=== PATIENT | female | born 1970 | race Caucasian/White ===

== ENCOUNTER 2020-03-04 10:39 | Outpatient (REF) | payer OTHER, SELFPAY ==
[2020-03-04 15:03] LABS: Alanine Aminotransferase 47 U/L (0-31); Albumin Level 4.6 g/dL (3.5-5.0); Alkaline Phosphatase 121 U/L (39-117); Aspartate Amino Transferase 37 U/L (5-31); Bilirubin Direct 0.2 mg/dL (0.0-0.5); Bilirubin Total 0.5 mg/dL (0.0-1.0); Total Protein 7.5 g/dL (6.5-8.0)
[2020-03-04 15:26] LABS: Vitamin D 25-OH Total 37.9 ng/mL (>30)
== END 2020-03-04 10:40 | disposition home or self-care (01) ==
LOC: HO.HMGCLDS 10:39
PROVIDERS: PCP Internal Medicine; Visit Provider Internal Medicine
DX: R79.89 Other specified abnormal findings of blood chemistry (principal)
CPT/HCPCS: 80076; 82306

== ENCOUNTER 2020-09-07 12:42 | Outpatient (REF) | payer OTHER, SELFPAY ==
--- NOTE | ~2020-09-07 | XR_ITS ---
EXAMINATION: XR HAND, RIGHT XR HAND, LEFT CLINICAL INFORMATION: Abnormal lab findings. COMPARISON: None. TECHNIQUE: AP, oblique, and lateral views of the right and left hand. FINDINGS: Right Hand: Mild joint space narrowing with tiny marginal osteophytes at the 2nd and 3rd metacarpophalangeal joints. No osseous erosion. No fracture or dislocation. No abnormal soft tissue calcification. Normal carpal alignment. Left Hand: Mild joint space narrowing tiny marginal osteophytes at the 3rd metacarpophalangeal joint. No osseous erosion. No fracture or dislocation. No abnormal soft tissue calcification. Normal carpal alignment. 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 LEFT HAND: Minimal degenerative arthritis at the 3rd metacarpophalangeal joint.
--- NOTE | ~2020-09-07 | XR_ITS ---
EXAMINATION: XR HAND, RIGHT XR HAND, LEFT CLINICAL INFORMATION: Abnormal lab findings. COMPARISON: None. TECHNIQUE: AP, oblique, and lateral views of the right and left hand. FINDINGS: Right Hand: Mild joint space narrowing with tiny marginal osteophytes at the 2nd and 3rd metacarpophalangeal joints. No osseous erosion. No fracture or dislocation. No abnormal soft tissue calcification. Normal carpal alignment. Left Hand: Mild joint space narrowing tiny marginal osteophytes at the 3rd metacarpophalangeal joint. No osseous erosion. No fracture or dislocation. No abnormal soft tissue calcification. Normal carpal alignment. 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 LEFT HAND: Minimal degenerative arthritis at the 3rd metacarpophalangeal joint.
== END 2020-09-07 12:43 | disposition home or self-care (01) ==
LOC: HO.HMGCX 12:42
PROVIDERS: PCP Internal Medicine; Visit Provider Internal Medicine
DX: R79.89 Other specified abnormal findings of blood chemistry (principal); E78.5 Hyperlipidemia, unspecified; K76.0 Fatty (change of) liver, not elsewhere classified; M25.50 Pain in unspecified joint; R73.9 Hyperglycemia, unspecified; E55.9 Vitamin D deficiency, unspecified; R21 Rash and other nonspecific skin eruption
CPT/HCPCS: 73130

== ENCOUNTER 2022-06-20 09:01 | Outpatient (REF) | payer OTHER, SELFPAY ==
[2022-06-20 11:52] LABS: MANUAL DIFF FLAG NO
[2022-06-20 12:15] LABS: Basophils Percent Auto 0.8 % (0-2); Eosinophils Absolute Auto 0.2 X10*3/uL (0.0-0.4); Eosinophils Percent Auto 3.9 % (0-4); Hematocrit 43.3 % (37.0-47.0); Hemoglobin 14.4 g/dl (12.0-16.0); Imm Gran Abs Auto 0.01 X10*3/uL (0.00-0.03); Imm Gran Pct Auto 0.2 % (0.0-0.4); Lymphocytes Absolute Auto 1.8 X10*3/uL (1.2-4.9); Lymphocytes Percent Auto 36.3 % (20-40); Mean Corpuscular HGB Conc 33.3 g/dl (31.0-35.0); Mean Corpuscular Hemoglobin 30.5 pg (27.0-33.0); Mean Corpuscular Volume 91.7 fL (80.0-98.0); Mean Platelet Volume 10.9 fL (9.4-12.3); Monocytes Absolute Auto 0.5 X10*3/uL (0.1-1.2); Monocytes Percent Auto 9.2 % (2-11); Neutrophils Absolute Auto 2.4 x10*3/uL (2.0-8.3); Neutrophils Percent Auto 49.6 % (45-73); Platelet Count 304 X10*3/uL (160-400); Red Blood Count 4.72 X10*6/uL (4.20-5.50); Red Cell Distribution Width 12.7 % (11.0-16.0); White Blood Count 4.9 X10*3/uL (4.8-10.8)
[2022-06-20 12:49] LABS: Alanine Aminotransferase 42 U/L (0-31); Albumin Level 4.5 g/dL (3.5-5.0); Alkaline Phosphatase 112 U/L (39-117); Anion Gap 13 (12-20); Aspartate Amino Transferase 35 U/L (5-31); Bilirubin Total 0.6 mg/dL (0.0-1.0); Blood Urea Nitrogen 17 mg/dL (9-16); Calcium 9.8 mg/dL (8.4-10.2); Carbon Dioxide 27 mmol/L (22-29); Chloride 105 mmol/L (96-108); Cholesterol 165 mg/dL; Estimated Glomerular Filt Rate > 60; Glucose Fasting 113 mg/dL (60-99); HDL Cholesterol 42 mg/dL; LDL Cholesterol Calculated 93 mg/dl; Potassium 4.6 mmol/L (3.3-5.1); Sodium 140 mmol/L (135-145); Total Protein 7.2 g/dL (6.5-8.0); Triglycerides 153 mg/dL
[2022-06-20 13:02] LABS: TSH reflex Free T4 0.79 uIU/mL (0.32-4.0); Vitamin B12 572 pg/mL (200-900); Vitamin D 25-OH Total 43.9 ng/mL (>30)
== END 2022-06-20 09:02 | disposition home or self-care (01) ==
LOC: HO.HMGCLDS 09:01
PROVIDERS: Visit Provider Internal Medicine
DX: E53.8 Deficiency of other specified B group vitamins (principal); E78.5 Hyperlipidemia, unspecified; R73.9 Hyperglycemia, unspecified; E55.9 Vitamin D deficiency, unspecified
CPT/HCPCS: 36415; 80053; 80061; 82306; 82607; 82746; 84443; 85025

== ENCOUNTER 2023-10-02 08:59 | Outpatient (REF) | payer OTHER, SELFPAY ==
[2023-10-02 10:38] LABS: Estimated Average Glucose 120 mg/dL; Hemoglobin A1c % 5.8 % (<6.0)
[2023-10-02 11:06] LABS: Alanine Aminotransferase 32 U/L (0-31); Albumin Level 4.5 g/dL (3.5-5.0); Alkaline Phosphatase 99 U/L (39-117); Anion Gap 15 (12-20); Aspartate Amino Transferase 30 U/L (5-31); Bilirubin Total 0.4 mg/dL (0.0-1.0); Blood Urea Nitrogen 17 mg/dL (9-16); Calcium 10.1 mg/dL (8.4-10.2); Carbon Dioxide 25 mmol/L (22-29); Chloride 106 mmol/L (96-108); Estimated Glomerular Filt Rate > 60; Glucose Fasting 110 mg/dL (60-99); Potassium 4.8 mmol/L (3.3-5.1); Sodium 141 mmol/L (135-145); Total Protein 7.6 g/dL (6.5-8.0)
== END 2023-10-02 09:00 | disposition home or self-care (01) ==
LOC: HO.HMGCLDS 08:59
PROVIDERS: PCP Internal Medicine; Visit Provider Internal Medicine
DX: R73.9 Hyperglycemia, unspecified (principal); K76.0 Fatty (change of) liver, not elsewhere classified
CPT/HCPCS: 36415; 80053; 83036

== ENCOUNTER 2024-01-01 07:58 | Outpatient (AMB) | payer OTHER, SELFPAY ==
[2024-01-01 07:59] VITALS: BP 134/84; PULSE 95; O2SAT 98; BMI 28.4
--- NOTE | 2024-01-01 07:59 | A.OFFPC_ITS ---
Vital Signs 01/01/24 07:59 Height 5 ft 6 in Weight 176 lb BMI 28.4 BP 134/84 Blood Pressure Location Rt brachial Position Sitting Pulse 95 Pulse Source Pulse Oximeter Pulse Oximetry (%) 98 Oxygen Delivery Method Room Air Intake Visit Reasons: Annual PE Intake Note: Pt is here today for PE. Allergies No Known Allergies Allergy (Verified 01/01/24 08:02) Medication List - Last Reconciled 01/01/24 by Kylee Marin MD albuterol sulfate 90 mcg/actuation 2 puffs PO Q4H PRN betamethasone dipropionate 0.05% 1 appl topical BEDTIME PRN calcium carbonate (Calcium 600) 600 mg PO DAILY cholecalciferol (vitamin D3) 50 mcg PO DAILY clobetasol 0.05% 1 appl topical BID loratadine (Claritin) 10 mg PO DAILY magnesium oxide 500 mg PO DAILY valacyclovir (Valtrex) 1,000 mg PO Q8H Tobacco use date assessed: 01/01/24 Dental Screening Dental Screen Date: 01/01/24 Did you have a dental visit in the last 12 months?: Yes Did you have a dental problem in the last 6 months where you did not have access to dental care?: No Was dental information given to patient?: Patient has dentist HPI Annual PE HPI Details Pt presents for PE. Pt c/o recurrent UTIs every month. She denies urinary incontinence, hematuria, fever chills nausea vomiting, change in bowel habits. [facility] Medical History Vitamin B12 deficiency Annual physical exam Hyperglycemia Vitamin D deficiency Skin rash Arthralgia Nonalcoholic hepatosteatosis Elevated LFTs Bilateral carpal tunnel syndrome Hyperlipidemia Mild asthma Allergic rhinitis Surgical History Status post bilateral foot surgery No pertinent past surgical history Family History Father No problems noted. Mother HTN (hypertension) Social History Housing: House Alcohol intake: current Alcohol intake frequency: does not drink Patient Tobacco Use Status: Former Tobacco user e-Cigarette/Vaping Use: Never Used Second Hand Smoke Exposure: No service: No Current occupational status: employed Cognitive needs: No Hearing needs: No Vision needs: Yes Questionnaire PHQ-9 Over the last 2 weeks, how often have you been bothered by any of the following problems? 1. Little interest or pleasure in doing things: not at all 2. Feeling down, depressed, or hopeless: not at all 3. Trouble falling or staying asleep, or sleeping too much: not at all 4. Feeling tired or having little energy: not at all 5. Poor appetite or overeating: not at all 6. Feeling bad about yourself - or that you are a failure or have let yourself or your family down: not at all 7. Trouble concentrating on things, such as reading the newspaper or watching television: not at all 8. Moving or speaking so slowly that other people could have noticed. Or the opposite - being so fidgety or restless that you have been moving around a lot more than usual: not at all 9. Thoughts that you would be better off or of hurting yourself in some way: not at all Total score: 0 Depression Screening Interpretation: Negative Depression Screening Done: Yes 79357 - PHQ-9 Billing: Yes Source: Developed by Drs. Brent Weiss, Meagan Cuevas, Berto Sanz and colleagues, with an educational ramila from [employer]. Thrive Questionnaire Date Thrive assessed: 01/01/24 I am a: Patient What is your living situation today?: I have a steady place to live Within the past 12 months, did the food you bought not last and you didn't have the money to get more?: Never true Within the past 12 months, did you worry whether your food would run out before you got money to buy more?: Never true Do you have trouble paying for medicines?: I choose not to answer this question Do you have trouble getting transportation to medical appointments?: No Do you have trouble paying your heating and electricity bill?: No Do you have trouble taking care of your child, family member or friend?: No Do you have trouble with day-to-day activities such as bathing, preparing meals, shopping, managing finances, etc.?: No Are you currently unemployed and looking for a job?: No Are you interested in more education?: No Please select the resources that you would like help with: Housing/Longterm Currently or been in a relationship where the following occur: No concerns reported THRIVE Score: 0 AUDIT C Alcohol Use Questionnaire (AUDIT-C) 1. How often do you have a drink containing alcohol?: Never 3. How often do you have six or more drinks on one occasion?: Never Total Score: 0 RUI-7 AMB Questionnaire RUI-7 Date RUI - 7 assessed: 01/01/24 Feeling nervous, anxious, or on edge: 1 = Several days Not being able to stop or control worryin = Not at all Worrying too much about different things: 1 = Several days Trouble relaxin = Several days Being so restless that it is hard to sit still: 0 = Not at all Becoming easily annoyed or irritable: 0 = Not at all Feeling afraid as if something awful might happen: 0 = Not at all Total RUI-7 score (0-4 normal; 5-9 mild; 10-14 moderate; 15-21 severe): 3 Source: Developed by Drs. Brent Weiss, Meagan Cuevas, Berto Sanz and colleagues, with an educational ramila from [employer]. RUI-7 Assessment Billing RUI-7 Assessment Tool: RUI-7 Assessment 90729 Review of Systems Const All systems reviewed & are unremarkable except as noted in HPI and below Eyes Reports no additional complaints ENT Reports no additional complaints Card Reports no additional complaints Resp Reports no additional complaints GI Reports no additional complaints Reports no additional complaints Physical exam (Primary Care) Vital Signs: Last Vital Signs Pulse 95 01/01/24 07:59 BP 134/84 01/01/24 07:59 Pulse Ox 98 01/01/24 07:59 Oxygen Delivery Method Room Air 01/01/24 07:59 BMI result Body Mass Index 28.4 Tobacco/Smoking Status: Tobacco use Status Tobacco use date assessed 01/01/24 01/01/24 08:11 Patient Tobacco Use Status Former Tobacco user 01/01/24 08:11 e-Cigarette/Vaping Use Never Used 01/01/24 08:11 PHQ-9: PHQ-9 Score PHQ-9: Total score 0 01/01/24 08:27 Depression Screening Interpretation: Negative Thrive Assessment: Date of Thrive Assessment Date Thrive assessed 01/01/24 01/01/24 08:27 Currently or been in a relationship where the following occur: No concerns reported Const General: no acute distress HENMT Head: Yes normal to inspection Ears: hearing grossly normal bilaterally Mouth: Normal oral and palatal mucosa present Throat: Yes posterior oropharynx normal Eyes General: appearance normal, both eyes and all related structures Neck Neck: Yes no lymphadenopathy and Yes supple Resp Effort & Inspection: normal respiratory effort Auscultation: clear to auscultation bilaterally Cardio Rhythm: regular rhythm Heart sounds: S1 normal heart sound present and S2 normal heart sound present GI Inspection: Yes normal to inspection Palpation (GI): Soft to palpation Percussion: Yes normal to percussion Auscultation: normal bowel sounds External Female Exam: normal external appearance Speculum Exam - Vagina: normal appearance of the vagina Speculum Exam - Cervix: normal appearance of the cervix Bimanual Exam- Adnexa, other: normal adnexae Assessment and Plan Assessment & Plan (1) Hyperlipidemia: Code(s): E78.5 - Hyperlipidemia, unspecified Plan: cont low cholesterol diet (2) Hyperglycemia: Code(s): R73.9 - Hyperglycemia, unspecified Plan: ADA diet, regular exercise, check A1C (3) Annual physical exam: Code(s): Z00.00 - Encounter for general adult medical examination without abnormal findings Plan: Pt will schedule mammogram, return for fasting labs (4) UTI (urinary tract infection): Code(s): N39.0 - Urinary tract infection, site not specified Plan: recheck UA and urine culture 1 week after Tx, UTI prevention discussed Orders: Orders Complete Blood Count Auto Diff Today E78.5 - Hyperlipidemia, unspecified, Z00.00 - Encounter for general adult medical examination without abnormal findings PAP Smear Today Z00.00 - Encounter for general adult medical examination without abnormal findings UA w Microscopic Today E78.5 - Hyperlipidemia, unspecified, Z00.00 - Encounter for general adult medical examination without abnormal findings Urine Culture Today E78.5 - Hyperlipidemia, unspecified, Z00.00 - Encounter for general adult medical examination without abnormal findings Comprehensive [place]. Panel Fast Today E78.5 - Hyperlipidemia, unspecified, Z00.00 - Encounter for general adult medical examination without abnormal findings Lipid Panel Today E78.5 - Hyperlipidemia, unspecified, Z00.00 - Encounter for general adult medical examination without abnormal findings Vitamin B12 and Folate Today E78.5 - Hyperlipidemia, unspecified, Z00.00 - Encounter for general adult medical examination without abnormal findings Vitamin D 25-OH Total Today E78.5 - Hyperlipidemia, unspecified, Z00.00 - Encounter for general adult medical examination without abnormal findings Hemoglobin A1c Today R73.9 - Hyperglycemia, unspecified US renal BI Today N39.0 - Urinary tract infection, site not specified Coding Level of Care Code Est Pt Prev Care 40-64y(97320) Diagnoses Hyperlipidemia E78.5 Hyperglycemia R73.9 Annual physical exam Z00.00 UTI (urinary tract infection) N39.0 Additional Codes RUI-7 Assessment Billing - RUI-7 Assessment Tool: RUI-7 Assessment 44147 ([id number])
== END 2024-01-01 09:14 | disposition home or self-care (01) ==
PROVIDERS: PCP Internal Medicine; Visit Provider Internal Medicine
DX: Z00.00 Encounter for general adult medical examination without abnormal findings (principal); E78.5 Hyperlipidemia, unspecified; R73.9 Hyperglycemia, unspecified; N39.0 Urinary tract infection, site not specified
CPT/HCPCS: 99396

== ENCOUNTER 2024-01-01 13:08 | Outpatient (REF) | payer OTHER, SELFPAY | END 2024-01-01 13:09 | disposition home or self-care (01) | LOC: HO.HMGCLNP 13:08 | PROVIDERS: Visit Provider Internal Medicine | DX: Z00.00 Encounter for general adult medical examination without abnormal findings (principal) | CPT/HCPCS: 88175 ==

== ENCOUNTER 2024-01-08 09:48 | Outpatient (REF) | payer OTHER, SELFPAY ==
--- NOTE | ~2024-01-08 | US_ITS ---
EXAMINATION: US RETROPERITONEAL COMPLETE (RENAL) CLINICAL INFORMATION: Urinary tract infection.. COMPARISON: Abdominal ultrasound dated 11/07/2019. TECHNIQUE: Real-time imaging of the kidneys and bladder. FINDINGS: RIGHT KIDNEY: 9.7 x 3.8 x 5.7 cm (SAG x AP x TRV). The kidney is normal in size, contour, and echogenicity. Renal cortical thickness is normal. No calculi or focal parenchymal lesions. No hydronephrosis. LEFT KIDNEY: 10.1 x 3.9 x 5.8 cm (SAG x AP x TRV). The kidney is normal in size, contour, and echogenicity. Renal cortical thickness is normal. No calculi or focal parenchymal lesions. No hydronephrosis. US/US renal BI IMPRESSION: Unremarkable ultrasound appearance of the kidneys.. Electronically signed by: Conrado Sosa MD 01/24/2024 10:56 AM EDT
[2024-01-08 13:11] LABS: MANUAL DIFF FLAG NO
[2024-01-08 13:22] LABS: Basophils Absolute Auto 0.1 X10*3/uL (0.0-0.2); Eosinophils Absolute Auto 0.2 X10*3/uL (0.0-0.4); Hematocrit 42.7 % (37.0-47.0); Hemoglobin 14.2 g/dl (12.0-16.0); Imm Gran Abs Auto 0.01 X10*3/uL (0.00-0.03); Imm Gran Pct Auto 0.2 % (0.0-0.4); Lymphocytes Absolute Auto 1.7 X10*3/uL (1.2-4.9); Lymphocytes Percent Auto 34.5 % (20-40); Mean Corpuscular HGB Conc 33.3 g/dl (31.0-35.0); Mean Corpuscular Hemoglobin 30.7 pg (27.0-33.0); Mean Corpuscular Volume 92.2 fL (80.0-98.0); Mean Platelet Volume 10.5 fL (9.4-12.3); Monocytes Absolute Auto 0.4 X10*3/uL (0.1-1.2); Monocytes Percent Auto 7.1 % (2-11); Neutrophils Absolute Auto 2.7 x10*3/uL (2.0-8.3); Neutrophils Percent Auto 54.2 % (45-73); Platelet Count 268 X10*3/uL (160-400); Red Blood Count 4.63 X10*6/uL (4.20-5.50); Red Cell Distribution Width 13.2 % (11.0-16.0); White Blood Count 4.9 X10*3/uL (4.8-10.8)
[2024-01-08 13:29] LABS: Appearance Urine Cloudy; Color Urine Yellow; Glucose Urine UA Negative (Negative); Leukocyte Esterase Urine Negative (Negative); Nitrite Urine Negative (Negative); PH 5.5 (5.0-9.0); Urine Blood Negative (Negative); Urine Ketones Negative (Negative); Urine Protein Negative (Neg-Trace)
[2024-01-08 13:33] LABS: Bacteria Urine None Seen (None Seen); Hyaline Casts Urine 0-2 /LPF (0-2); RBC Urine 0-2 /HPF (0-2); Squamous Epithelial Cell Urine 0-2 /HPF (0-2); WBC Urine 0-5 /HPF (0-5)
[2024-01-08 13:42] LABS: Estimated Average Glucose 111 mg/dL; Hemoglobin A1c % 5.5 % (<6.0)
[2024-01-08 13:58] LABS: Alanine Aminotransferase 35 U/L (0-31); Albumin Level 4.3 g/dL (3.5-5.0); Alkaline Phosphatase 83 U/L (39-117); Anion Gap 12 (12-20); Aspartate Amino Transferase 30 U/L (5-31); Bilirubin Total 0.4 mg/dL (0.0-1.0); Blood Urea Nitrogen 19 mg/dL (9-16); Calcium 9.9 mg/dL (8.4-10.2); Carbon Dioxide 27 mmol/L (22-29); Chloride 106 mmol/L (96-108); Cholesterol 184 mg/dL (<200); Estimated Glomerular Filt Rate > 60; Glucose Fasting 104 mg/dL (60-99); HDL Cholesterol 44 mg/dL (>40); LDL Cholesterol Calculated 94 mg/dL (<100); Potassium 4.3 mmol/L (3.3-5.1); Sodium 141 mmol/L (135-145); Total Protein 7.2 g/dL (6.5-8.0); Triglycerides 232 mg/dL (<150)
[2024-01-08 14:03] LABS: Vitamin D 25-OH Total 61.7 ng/mL (>30)
[2024-01-08 14:11] LABS: Folate 10.9 ng/mL (> or = 4.0); Vitamin B12 388 pg/mL (200-900)
== END 2024-01-08 09:49 | disposition home or self-care (01) ==
LOC: HO.HMGCX 09:48
PROVIDERS: PCP Internal Medicine; Visit Provider Internal Medicine
DX: E78.5 Hyperlipidemia, unspecified (principal); R73.9 Hyperglycemia, unspecified; N39.0 Urinary tract infection, site not specified; Z00.00 Encounter for general adult medical examination without abnormal findings
CPT/HCPCS: 36415; 76775; 80053; 80061; 81001; 82306; 82607; 82746; 83036; 85025; 87086

== ENCOUNTER 2024-01-29 09:54 | Outpatient (REF) | payer OTHER, SELFPAY ==
--- NOTE | ~2024-01-29 | US_ITS ---
EXAMINATION: US ABDOMEN COMPLETE CLINICAL INFORMATION: Other specified abnormal findings of blood chemistry. Elevated LFTs. COMPARISON: Ultrasound kidneys and bladder 01/08/2024. Ultrasound abdomen complete 11/07/2019. TECHNIQUE: Real-time imaging of the abdominal viscera. FINDINGS: PANCREAS: Normal. ABDOMINAL AORTA: The proximal, mid, and distal segments are normal in caliber. INFERIOR VENA CAVA: Visualized portions are normal. LIVER: The liver is enlarged measuring at least 18 cm in length and demonstrates increased echogenicity consistent with hepatic steatosis. The liver contour is normal. A benign 2.9 cm cyst is noted in the left lobe of the liver. There is no intrahepatic biliary duct dilatation seen. GALLBLADDER: Normal. The gallbladder is physiologically distended without evidence of stones, sludge, polyps, wall thickening or pericholecystic fluid. COMMON BILE DUCT: Normal in caliber measuring 0.5 cm in diameter. RIGHT KIDNEY: Normal. No hydronephrosis. No renal calculi or focal parenchymal lesions. The kidney measures 10.4 cm in maximum dimension. LEFT KIDNEY: Normal. No hydronephrosis. No renal calculi or focal parenchymal lesions. The kidney measures 10.4 cm in maximum dimension. SPLEEN: Normal. The spleen measures 10.4 cm in maximum dimension. FREE FLUID: None. US/US abdomen complete IMPRESSION: Enlarged fatty liver. Electronically signed by: Quintin Olivia MD 02/07/2024 01:19 PM EDT
== END 2024-01-29 09:55 | disposition home or self-care (01) ==
LOC: HO.HMGCX 09:54
PROVIDERS: PCP Internal Medicine; Visit Provider Internal Medicine
DX: R79.89 Other specified abnormal findings of blood chemistry (principal)
CPT/HCPCS: 76700

== ENCOUNTER 2024-04-02 08:30 | Outpatient (AMB) | payer OTHER, SELFPAY ==
[2024-04-02 08:47] VITALS: BP 136/80; PULSE 108; O2SAT 99; BMI 28.9
--- NOTE | 2024-04-02 08:47 | MHC.PC.OV ---
Vital Signs 04/02/24 08:47 Height 5 ft 6 in Weight 179 lb BMI 28.9 BP 136/80 Blood Pressure Location Lt brachial Position Sitting Pulse 108 H Pulse Source Pulse Oximeter Pulse Oximetry (%) 99 Oxygen Delivery Method Room Air Intake Visit Reasons: cold symptoms Intake Note: Pt is here today for a sick visit. Pt c/o chest congestion. Pt also c/o bladder issues. Allergies No Known Allergies Allergy (Verified 04/02/24 08:50) Medication List - Last Reconciled 04/02/24 by Kylee Marin MD albuterol sulfate 90 mcg/actuation 2 puffs PO Q4H PRN betamethasone dipropionate 0.05% 1 appl topical BEDTIME PRN calcium carbonate (Calcium 600) 600 mg PO DAILY cholecalciferol (vitamin D3) 50 mcg PO DAILY clobetasol 0.05% 1 appl topical BID estradiol 0.01%(0.1mg/gram) 1 g vaginal 2XW loratadine (Claritin) 10 mg PO DAILY magnesium oxide 500 mg PO DAILY valacyclovir (Valtrex) 1,000 mg PO Q8H Tobacco use date assessed: 04/02/24 Dental Screening Dental Screen Date: 01/01/24 HPI cold symptoms HPI Details Patient complains of sinus congestion postnasal drip productive cough with yellow sputum for 1 week getting better. Patient reports lower abdominal discomfort pressure-like and increased urinary frequency, intermittent dysuria on and off for the last week. Patient denies fever chills hematuria back pain. She reports intermittent diarrhea after eating but no melena hematochezia nausea vomiting. [facility] Medical History Vitamin B12 deficiency Annual physical exam Hyperglycemia Vitamin D deficiency Skin rash Arthralgia Nonalcoholic hepatosteatosis Elevated LFTs Bilateral carpal tunnel syndrome Hyperlipidemia Mild asthma Allergic rhinitis Surgical History Status post bilateral foot surgery No pertinent past surgical history Family History Father No problems noted. Mother HTN (hypertension) Social History Housing: House Alcohol intake: current Alcohol intake frequency: does not drink Patient Tobacco Use Status: Former Tobacco user e-Cigarette/Vaping Use: Never Used Second Hand Smoke Exposure: No service: No Current occupational status: employed Cognitive needs: No Hearing needs: No Vision needs: Yes Questionnaire Thrive Questionnaire Date Thrive assessed: 12/25/23 I am a: Patient What is your living situation today?: I have a steady place to live Within the past 12 months, did the food you bought not last and you didn't have the money to get more?: Never true Within the past 12 months, did you worry whether your food would run out before you got money to buy more?: Never true Do you have trouble paying for medicines?: I choose not to answer this question Do you have trouble getting transportation to medical appointments?: No Do you have trouble paying your heating and electricity bill?: No Do you have trouble taking care of your child, family member or friend?: No Do you have trouble with day-to-day activities such as bathing, preparing meals, shopping, managing finances, etc.?: No Are you currently unemployed and looking for a job?: No Are you interested in more education?: No Please select the resources that you would like help with: None Currently or been in a relationship where the following occur: No concerns reported THRIVE Score: 0 RUI-7 AMB Questionnaire RUI-7 Date RUI - 7 assessed: 01/01/24 Source: Developed by Drs. Brent Weiss, Meagan Cuevas, Berto Sanz and colleagues, with an educational ramila from [employer]. Review of Systems Const All systems reviewed & are unremarkable except as noted in HPI and below ENT Reports no additional complaints Card Reports no additional complaints Resp Reports no additional complaints GI Reports no additional complaints Reports no additional complaints Physical exam (Primary Care) Vital Signs: Last Vital Signs Pulse 108 H 04/02/24 08:47 BP 136/80 04/02/24 08:47 Pulse Ox 99 04/02/24 08:47 Oxygen Delivery Method Room Air 04/02/24 08:47 BMI result Body Mass Index 28.9 Tobacco/Smoking Status: Tobacco use Status Tobacco use date assessed 04/02/24 04/02/24 08:56 Patient Tobacco Use Status Former Tobacco user 04/02/24 08:47 e-Cigarette/Vaping Use Never Used 04/02/24 08:47 Thrive Assessment: Date of Thrive Assessment Date Thrive assessed 12/25/23 04/02/24 08:47 Currently or been in a relationship where the following occur: No concerns reported Const General: no acute distress HENMT Ears: TM's normal bilaterally Face and sinus: Yes normal facial exam Throat: Yes postnasal drainage Eyes General: appearance normal, both eyes and all related structures Resp Effort & Inspection: normal respiratory effort Auscultation: clear to auscultation bilaterally Cardio Rhythm: regular rhythm Heart sounds: S1 normal heart sound present and S2 normal heart sound present GI Inspection: Yes normal to inspection Palpation (GI): Soft to palpation Percussion: Yes normal to percussion Auscultation: normal bowel sounds General: Yes no CVA tenderness Back/Spine/Pelvis Back: no CVA tenderness Coding Level of Care Code Est Pt Level 3 (88312) Diagnoses UTI (urinary tract infection) N39.0 Constipation K59.00 Urinary retention with incomplete bladder emptying R33.9 Assessment & Plan Assessment & Plan (1) UTI (urinary tract infection): Code(s): N39.0 - Urinary tract infection, site not specified Category: Medical Plan: Check UA culture and obtain blood ultrasound to evaluate for urinary retention (2) Constipation: Code(s): K59.00 - Constipation, unspecified Category: Medical Plan: Check abdominal series to evaluate for chronic constipation (3) Urinary retention with incomplete bladder emptying: Code(s): R33.9 - Retention of urine, unspecified Category: Medical Plan: Obtain blood ultrasound and repeat urine culture. Patient was advised to use estrogen vaginal cream twice a week for atrophic vaginitis Orders: Orders Urine Culture Today N39.0 - Urinary tract infection, site not specified UA w Microscopic Today N39.0 - Urinary tract infection, site not specified US bladder Today N39.0 - Urinary tract infection, site not specified, R33.9 - Retention of urine, unspecified
== END 2024-04-02 11:37 | disposition home or self-care (01) ==
PROVIDERS: PCP Internal Medicine; Visit Provider Internal Medicine
DX: N39.0 Urinary tract infection, site not specified (principal); K59.00 Constipation, unspecified; R33.9 Retention of urine, unspecified

== ENCOUNTER 2024-04-02 09:41 | Outpatient (REF) | payer OTHER, SELFPAY ==
--- NOTE | ~2024-04-02 | XR_ITS ---
EXAMINATION: XR ABDOMEN KUB CLINICAL INDICATION: Constipation unspecified. COMPARISON: Abdominal ultrasound January 2024. TECHNIQUE: AP view of the abdomen. FINDINGS: The bowel gas pattern is normal with no evidence of ileus or obstruction. No unusual soft tissue calcifications are noted. Spondylosis of the lumbar sacral spine with bilateral facet arthrosis the L4-L5 level. XR/XR KUB IMPRESSION: No acute abnormality. Incidental note made of spondylosis of lumbar sacral spine Electronically signed by: Devaughn Huerta MD 04/02/2024 02:34 PM [facility]
[2024-04-02 13:32] LABS: Appearance Urine Clear; Color Urine Yellow; Glucose Urine UA Negative (Negative); Leukocyte Esterase Urine Small (1+) (Negative); Nitrite Urine Negative (Negative); PH 6.5 (5.0-9.0); UMIC TRIGGER UA YES; Urine Blood Negative (Negative); Urine Ketones Negative (Negative); Urine Protein Negative (Neg-Trace)
[2024-04-02 13:41] LABS: Bacteria Urine 4+ (None Seen); Hyaline Casts Urine 0-2 /LPF (0-2); RBC Urine 0-2 /HPF (0-2); Squamous Epithelial Cell Urine 0-2 /HPF (0-2)
== END 2024-04-02 09:42 | disposition home or self-care (01) ==
LOC: HO.HMGCX 09:41
PROVIDERS: PCP Internal Medicine; Visit Provider Internal Medicine
DX: R33.9 Retention of urine, unspecified (principal); N39.0 Urinary tract infection, site not specified; K59.00 Constipation, unspecified
CPT/HCPCS: 74018; 81001; 87086; 87088; 87186; 99212

== ENCOUNTER 2024-04-08 10:59 | Outpatient (REF) | payer OTHER, SELFPAY ==
--- NOTE | ~2024-04-08 | US_ITS ---
EXAMINATION: US PELVIS LIMITED (BLADDER) CLINICAL INFORMATION: Urinary tract infection; question urinary retention. COMPARISON: None available. TECHNIQUE: Real-time imaging of the bladder. FINDINGS: BLADDER: Well distended and normal. Bilateral ureteral jets are demonstrated. Prevoid bladder volume is 482 mL. Postvoid bladder volume is 32 mL. US/US bladder IMPRESSION: Unremarkable examination. The post void residual volume is within normal limits. Electronically signed by: Conrado Sosa MD 04/08/2024 05:27 PM EST
== END 2024-04-08 11:00 | disposition home or self-care (01) ==
LOC: HO.HMGCX 10:59
PROVIDERS: PCP Internal Medicine; Visit Provider Internal Medicine
DX: N39.0 Urinary tract infection, site not specified (principal); R33.9 Retention of urine, unspecified
CPT/HCPCS: 76857